=== PATIENT | male | born 1940 | race Caucasian/White ===

== ENCOUNTER 2017-03-19 19:31 | Emergency (ER) | payer MEDICARE ==
--- NOTE | 2017-03-19 20:07 | ED ---
Fall HPI - General Chief Complaint: Fall Stated Complaint: Fall,head injury Time Seen by Provider: 03/19/17 19:51 Source: RN notes reviewed, old records reviewed - History of Present Illness Initial Comments: This is a pleasant 76-year-old male with chief complaint of falling while stepping out of the truck. Patient reports that when he fell he landed on his right ribs. He states that he has pain whenever he moves. He states that he also has a laceration over left side of his head. He denies hitting his head but is unsure why he has a laceration. Denies any specific loss of consciousness. He is on Plavix. Patient denies any other extremity injuries or pain. He states that when he fell a back of toliet paper softened his fall. Patient denies any headache, neck pain, abdominal pain, chest pain or shortness of breath. Patient denies any extremity injuries, peripheral paresthesias. - Related Data Home Medications Medication Instructions Recorded Confirmed Aspirin EC [Ecotrin Low Dose] 81 mg PO DAILY 03/19/17 03/19/17 Atenolol [Tenormin] 50 mg PO BID 03/19/17 03/19/17 Atorvastatin [Lipitor] 20 mg PO DAILY 03/19/17 03/19/17 Atorvastatin [Lipitor] 40 mg PO DAILY 03/19/17 03/19/17 Clopidogrel [Plavix] 75 mg PO DAILY 03/19/17 03/19/17 Enalapril [Vasotec] 10 mg PO DAILY 03/19/17 03/19/17 Isosorbide Mononitrate ER [Imdur] 30 mg PO DAILY 03/19/17 03/19/17 Lisinopril [Zestril] 2.5 mg PO DAILY 03/19/17 03/19/17 Nitroglycerin Sl Tabs [Nitrostat] 0.4 mg SUBLINGUAL Q5M PRN 03/19/17 03/19/17 Ranolazine [Ranexa] 500 mg PO BID 03/19/17 03/19/17 glipiZIDE [Glucotrol] 5 mg PO DAILY 03/19/17 03/19/17 metFORMIN HCL 1,000 mg PO BID 03/19/17 03/19/17 Previous Rx's Medication Instructions Recorded Acetaminophen-Codeine 300-30mg 1 tab PO Q6H PRN #12 tablet 03/19/17 [Tylenol #3] Allergies Allergy/AdvReac Type Severity Reaction Status Date / Time iodine Allergy Rash/Hives Verified 03/19/17 20:08 naproxen [From Aleve] Allergy Rash/Hives Verified 03/19/17 20:08 Penicillins Allergy Rash/Hives Verified 03/19/17 20:08 Review of Systems ROS Statement: Those systems with pertinent positive or pertinent negative responses have been documented in the HPI. ROS Other: All systems not noted in ROS Statement are negative. General Exam - General Exam Comments Initial Comments: Pleasant 76 chilled male. No distress. General appearance: alert, in no apparent distress Head exam: Present: normocephalic, normal inspection. Absent: atraumatic (She has a2 cm laceration over the left latter-day) Eye exam: Present: normal appearance, PERRL, EOMI. Absent: scleral icterus, conjunctival injection, periorbital swelling ENT exam: Present: normal exam, normal oropharynx, mucous membranes moist Neck exam: Present: normal inspection. Absent: tenderness, meningismus, lymphadenopathy Respiratory exam: Present: normal lung sounds bilaterally, other (tenderness over right lower ribs with palpation). Absent: respiratory distress, wheezes, rales, rhonchi, stridor Cardiovascular Exam: Present: regular rate, normal rhythm, normal heart sounds. Absent: systolic murmur, diastolic murmur, rubs, gallop, clicks GI/Abdominal exam: Present: soft, normal bowel sounds. Absent: distended, tenderness, guarding, rebound, rigid Extremities exam: Present: normal inspection, full ROM, normal capillary refill. Absent: tenderness, pedal edema, joint swelling, calf tenderness Back exam: Present: normal inspection Neurological exam: Present: alert, oriented X3, CN II-XII intact Psychiatric exam: Present: normal affect, normal mood Skin exam: Present: warm, dry, intact, normal color. Absent: rash Course Vital Signs 03/19/17 20:07 Temperature 97.1 F L Pulse Rate 63 Respiratory 18 Rate Blood Pressure 162/70 O2 Sat by Pulse 97 Oximetry Procedures - Laceration Laceration #1 Indication: laceration Site: face Size (cm): 2 Description: linear Depth: simple, single layer Anesthetic Used: benzocaine 0.25% Anesthesia Technique: local infiltration Amount (mls): 3 Pre-repair: wound explored, irrigated extensively Type of Sutures: nylon Size of Sutures: 5-0, 6-0 Number of Sutures: 2 Technique: simple, interrupted Patient Tolerated Procedure: well, no complications Medical Decision Making - Medical Decision Making This is a pleasant 76-year-old male with chief complaint of a fall after stepping out of a truck. Patient reports that he missed her footing and landed on his right side. He does have a laceration over the left latter-day. Laceration was irrigated and closed with 2 sutures. Wound was well approximated. Patient complains of right lower rib pain. X-rays are obtained and show no definite fractures. He reports the pain is worse with position. Denies any shortness of breath or chest pain. Denies any abdominal pain. Patient has no tenderness over the abdomen. He is tender over the 10th and 11th ribs with deep palpation. Patient will be discharged at this time with head injury instructions as well as diagnosis of rib contusion. Discussed the importance of taking a deep breath to avoid pneumonia. Patient will be discharged with incentive spirometry. Also discussed the continue pain medication only as needed for severe pain. Patient advised to follow up with primary care provider within the next 2-3 days. Patient understands treatment plan will comply. Return parameters were discussed. - Radiology Data Radiology results: report reviewed CT brain and patient bones are negative for any acute abdomen. Right rib x-ray shows no evidence of acute displaced ribs. Chest x-ray is normal. Disposition Clinical Impression: Contusion of rib on right side, Facial laceration, Head injury Disposition: HOME SELF-CARE Condition: Good Instructions: Fall Prevention for Older Adults (ED) Additional Instructions: Please return to the emergency room in 7 days to have sutures removed. Please leave wound covered for the first 24-48 hours and then leave open to air after that time. Please use clean soap and water to clean the suture area to prevent scabbing over the top of your sutures. Please watch for any signs of infection which may include but not limited to increased pain, swelling, redness, fever or chills. Please return to the emergency room if any signs of infection do occur. Please return to the emergency room for any other concerns or complications. Patient needs to follow-up with primary care provider within the next 2 or 3 days. Patient is to be monitored at all times for the next 24- 48 hours and return to emergency Department if once if there is any altered mental status changes. Return to the emergency department if any alarming signs or symptoms occur. Patient follow-up with ENT specialist due to right ear hearing problem. She also thinks to take 10 deep breaths an hour for the next few days to ensure no developing pneumonias. Prescriptions: Acetaminophen-Codeine 300-30mg [Tylenol #3] 1 tab PO Q6H PRN #12 tablet PRN Reason: Pain Referrals: Sherri Porras MD [Primary Care Provider] - 1-2 days Bob Hernández DO [Doctor of Osteopathic Medicine] - 1-2 days Time of Disposition: 21:09
[2017-03-19 20:14] VITALS: RESP 18
--- NOTE | 2017-03-19 20:33 | CT ---
EXAMINATION TYPE: CT facial bones wo con DATE OF EXAM: 03/19/2017 8:22 PM COMPARISON: NONE HISTORY: Fall injury today. Laceration to lateral side of left oribt. CT DLP: [address] of the facial bones was performed in the axial and coronal planes. Bone and soft tissu e window settings are submitted. Left periorbital soft tissue edema. I do not see evidence for displaced facial bone fracture or depressed facial bone fracture. The globes are intact. Paranasal sinuses are well-aerated. IMPRESSION: 1. No evidence for depressed or displaced facial bone fracture.
--- NOTE | 2017-03-19 20:34 | XR ---
EXAMINATION TYPE: XR ribs RT w pa chest xray DATE OF EXAM: 03/19/2017 8:23 PM COMPARISON: NONE HISTORY: Pain TECHNIQUE: Single view of the chest 4 views of the ribs are submitted. FINDINGS: Scattered senescent parenchymal changes are seen. No Evidence for pneumothorax. No evidenc e for focal contusion. Mediastinal structures are midline. Evaluation of the ribs fails to demonstr ate evidence for displaced rib fracture or secondary sign of rib fracture. IMPRESSION: 1. Chronic changes of the lungs. 2. No displaced right-sided rib fracture.
--- NOTE | 2017-03-19 21:21 | CT ---
EXAMINATION TYPE: CT brain wo con DATE OF EXAM: 03/19/2017 8:22 PM COMPARISON: 11/04/2013 HISTORY: Fall injury today. Laceration to lateral side of left oribt. CT DLP: [address] of the brain was performed. The ventricles, basal cisterns and sulci overlying the cerebral convexities demonstrate mild enlargem ent. There is no evidence for intracranial hemorrhage or sulcal effacement. There is decreased attenuation about the periventricular white matter and deep white matter of both c erebral hemispheres, compatible with chronic small vessel ischemia. Differential diagnosis does inclu de demyelination. No mass effects are seen.No midline shift. Osseous calvarium is intact. Small left frontal scalp hematoma. If symptoms persist consider MRI. IMPRESSION: 1. Age related atrophic and chronic small vessel ischemic change without acute intracranial process s een at this time.
[2017-03-19 22:12] VITALS: BP 145/69; PULSE 89; TEMP 98
== END 2017-03-19 22:11 | disposition home or self-care (01) ==
LOC: EC 19:31
DX: S01.81XA Laceration without foreign body of other part of head, initial encounter (principal); S20.211A Contusion of right front wall of thorax, initial encounter; I25.2 Old myocardial infarction; Z79.02 Long term (current) use of antithrombotics/antiplatelets; Z79.82 Long term (current) use of aspirin; Z79.84 Long term (current) use of oral hypoglycemic drugs; Z79.899 Other long term (current) drug therapy; Z88.0 Allergy status to penicillin; Z88.6 Allergy status to analgesic agent; Z91.09 Other allergy status, other than to drugs and biological substances; W01.0XXA Fall on same level from slipping, tripping and stumbling without subsequent striking against object, initial encounter; Y93.89 Activity, other specified
CPT/HCPCS: 12011; 70450; 70486; 99284

== ENCOUNTER 2018-12-31 09:43 | Emergency (ER) | payer MEDICARE ==
[2018-12-31 09:48] VITALS: TEMP 97.6
--- NOTE | 2018-12-31 10:12 | ED ---
General Adult HPI - General Chief complaint: Abdominal Pain Stated complaint: rt sided groin pain Time Seen by Provider: 12/31/18 09:54 Source: patient, RN notes reviewed Mode of arrival: ambulatory Limitations: no limitations - History of Present Illness Initial comments: 78-year-old male presents to the emergency department for a chief complaint of upper left abdominal pain times 12 hours. Patient states this started last night. He states it was radiating into the left lower abdomen. Patient is unable to describe the nature of the pain but does state he thought it was gas pain at first. He last had a normal bowel movement yesterday. He denies melena or hematochezia. He denies hematemesis. Patient denies any chest pain or shortness of breath. Patient does state he has a history of a hiatal hernia , denies any abdominal surgeries. Patient admits to nausea but denies vomiting. Patient has no other complaints at this time including shortness of breath, chest pain, vomiting, headache, or visual changes. Pain is left sided despite triage note. - Related Data Home Medications Medication Instructions Recorded Confirmed Aspirin EC [Ecotrin Low Dose] 81 mg PO DAILY 03/19/17 12/31/18 Atorvastatin [Lipitor] 20 mg PO HS 03/19/17 12/31/18 Atorvastatin [Lipitor] 40 mg PO HS 03/19/17 12/31/18 Clopidogrel [Plavix] 75 mg PO DAILY 03/19/17 12/31/18 Nitroglycerin Sl Tabs [Nitrostat] 0.4 mg SUBLINGUAL Q5M PRN 03/19/17 12/31/18 Ranolazine [Ranexa] 500 mg PO BID 03/19/17 12/31/18 metFORMIN HCL 1,000 mg PO BID 03/19/17 12/31/18 [place] 100 mg PO TID 12/31/18 12/31/18 Atenolol 25 mg PO BID 12/31/18 12/31/18 Isosorbide Mononitrate ER [Imdur] 60 mg PO BID 12/31/18 12/31/18 Meclizine [Antivert] 25 mg PO BID 12/31/18 12/31/18 sitaGLIPtin [Januvia] 100 mg PO DAILY 12/31/18 12/31/18 Previous Rx's Medication Instructions Recorded HYDROcodone/APAP 5-325MG [[place] 1 tab PO Q6HR PRN #12 tab 12/31/18 5-325] Ondansetron [Zofran ODT] 4 mg PO Q8HR PRN #15 tab 12/31/18 Tamsulosin [Flomax] 0.4 mg PO DAILY #10 cap 12/31/18 Allergies Allergy/AdvReac Type Severity Reaction Status Date / Time iodine Allergy Rash/Hives Verified 12/31/18 10:08 naproxen [From Aleve] Allergy Rash/Hives Verified 12/31/18 10:08 Penicillins Allergy Rash/Hives Verified 12/31/18 10:08 Review of Systems ROS Statement: Those systems with pertinent positive or pertinent negative responses have been documented in the HPI. ROS Other: All systems not noted in ROS Statement are negative. Past Medical History Past Medical History: Atrial Fibrillation, CVA/TIA, Myocardial Infarction (DC) History of Any Multi-Drug Resistant Organisms: None Reported Past Surgical History: Heart Catheterization With Stent Additional Past Surgical History / Comment(s): carpal tunnel surgery Past Psychological History: No Psychological Hx Reported Smoking Status: Never smoker Past Alcohol Use History: None Reported Past Drug Use History: None Reported General Exam Limitations: no limitations General appearance: alert, in no apparent distress Head exam: Present: atraumatic, normocephalic, normal inspection Eye exam: Present: normal appearance, PERRL, EOMI. Absent: scleral icterus, conjunctival injection, periorbital swelling ENT exam: Present: normal exam, mucous membranes moist Neck exam: Present: normal inspection, full ROM. Absent: tenderness, meningismus, lymphadenopathy Respiratory exam: Present: normal lung sounds bilaterally. Absent: respiratory distress, wheezes, rales, rhonchi, stridor Cardiovascular Exam: Present: regular rate, normal rhythm, normal heart sounds. Absent: systolic murmur, diastolic murmur, rubs, gallop, clicks GI/Abdominal exam: Present: soft, tenderness (Tenderness with guarding noted in the left upper quadrant as well as minimal tenderness in the left lower quadrant. No tenderness in the right side of the abdomen.), normal bowel sounds. Absent: distended, guarding, rebound, rigid Neurological exam: Present: alert, oriented X3, CN II-XII intact Psychiatric exam: Present: normal affect, normal mood Course Vital Signs 0212/31/18 12/31/18 09:45 10:15 11:30 Temperature 97.6 F Pulse Rate 89 93 90 Respiratory 20 16 19 Rate Blood Pressure 171/75 169/87 179/95 O2 Sat by Pulse 98 98 98 Oximetry 12/31/18 12/31/18 12:04 13:54 Temperature Pulse Rate 93 89 Respiratory 16 16 Rate Blood Pressure 188/94 175/95 O2 Sat by Pulse 98 98 Oximetry Medical Decision Making - Medical Decision Making 78-year-old male presents for left abdominal pain. Patient does have a 5 mm stone in the left ureter with obstruction likely causing patient's pain. Discussed other resolve such as cholelithiasis and prominence of pancreatic duct for which patient will follow up with primary care at his appointment on Thursday for. CMP does show potassium of 5.5, patient does appear dehydrated with a BUN of 31, given fluids. Magnesium 1.5 which was her placed with a gram of magnesium. EKG does not show any evidence of hyperkalemia. At this time discussed following up for repeat lab work as well as the CAT scan results. Patient will follow up with urology. Medications given however discussed increased risk of falls with [place]. - Lab Data Result diagrams: 12/31/18 10:00 12/31/18 10:00 Lab Results 12/31/18 12/31/18 12/31/18 Range/Units 10:00 10:00 10:00 WBC 9.2 (3.8-10.6) k/uL RBC 4.51 (4.30-5.90) m/uL Hgb 13.9 (13.0-17.5) gm/dL Hct 39.1 (39.0-53.0) % MCV 86.7 (80.0-100.0) fL MCH 30.7 (25.0-35.0) pg MCHC 35.5 (31.0-37.0) g/dL RDW 15.5 (11.5-15.5) % Plt Count 138 L (150-450) k/uL Neutrophils % 86 % Lymphocytes % 6 % Monocytes % 7 % Eosinophils % 0 % Basophils % 0 % Neutrophils # 7.8 H (1.3-7.7) k/uL Lymphocytes # 0.6 L (1.0-4.8) k/uL Monocytes # 0.6 (0-1.0) k/uL Eosinophils # 0.0 (0-0.7) k/uL Basophils # 0.0 (0-0.2) k/uL Sodium 138 (137-145) mmol/L Potassium 5.5 H (3.5-5.1) mmol/L Chloride 101 (98-107) mmol/L Carbon Dioxide 26 (22-30) mmol/L Anion Gap 11 mmol/L BUN 31 H (9-20) mg/dL Creatinine 1.15 (0.66-1.25) mg/dL Est GFR (CKD-EPI)AfAm 71 (>60 ml/min/1.73 sqM) Est GFR (CKD-EPI)NonAf 61 (>60 ml/min/1.73 sqM) Glucose 249 H (74-99) mg/dL POC Glucose (mg/dL) (75-99) mg/dL POC Glu Road Grader ID Calcium 9.5 (8.4-10.2) mg/dL Magnesium 1.5 L (1.6-2.3) mg/dL Total Bilirubin 0.7 (0.2-1.3) mg/dL AST 22 (17-59) U/L ALT 39 (21-72) U/L Alkaline Phosphatase 69 (38-126) U/L Total Protein 6.9 (6.3-8.2) g/dL Albumin 4.0 (3.5-5.0) g/dL Amylase 127 H (30-110) U/L Lipase 281 (23-300) U/L Urine Color Urine Appearance (Clear) Urine pH (5.0-8.0) Ur Specific Boomer (1.001-1.035) Urine Protein (Negative) Urine Glucose (UA) (Negative) Urine Ketones (Negative) Urine Blood (Negative) Urine Nitrite (Negative) Urine Bilirubin (Negative) Urine Urobilinogen (<2.0) mg/dL Ur Leukocyte Esterase (Negative) Urine RBC (0-5) /hpf Urine WBC (0-5) /hpf 12/31/18 12/31/18 Range/Units 11:39 12:01 WBC (3.8-10.6) k/uL RBC (4.30-5.90) m/uL Hgb (13.0-17.5) gm/dL Hct (39.0-53.0) % MCV (80.0-100.0) fL MCH (25.0-35.0) pg MCHC (31.0-37.0) g/dL RDW (11.5-15.5) % Plt Count (150-450) k/uL Neutrophils % % Lymphocytes % % Monocytes % % Eosinophils % % Basophils % % Neutrophils # (1.3-7.7) k/uL Lymphocytes # (1.0-4.8) k/uL Monocytes # (0-1.0) k/uL Eosinophils # (0-0.7) k/uL Basophils # (0-0.2) k/uL Sodium (137-145) mmol/L Potassium (3.5-5.1) mmol/L Chloride (98-107) mmol/L Carbon Dioxide (22-30) mmol/L Anion Gap mmol/L BUN (9-20) mg/dL Creatinine (0.66-1.25) mg/dL Est GFR (CKD-EPI)AfAm (>60 ml/min/1.73 sqM) Est GFR (CKD-EPI)NonAf (>60 ml/min/1.73 sqM) Glucose (74-99) mg/dL POC Glucose (mg/dL) 229 H (75-99) mg/dL POC Glu Road Grader ID [place] Calcium (8.4-10.2) mg/dL Magnesium (1.6-2.3) mg/dL Total Bilirubin (0.2-1.3) mg/dL AST (17-59) U/L ALT (21-72) U/L Alkaline Phosphatase (38-126) U/L Total Protein (6.3-8.2) g/dL Albumin (3.5-5.0) g/dL Amylase (30-110) U/L Lipase (23-300) U/L Urine Color Yellow Urine Appearance Clear (Clear) Urine pH 7.5 (5.0-8.0) Ur Specific [place]omer 1.022 (1.001-1.035) Urine Protein Negative (Negative) Urine Glucose (UA) 3+ H (Negative) Urine Ketones Trace H (Negative) Urine Blood Small H (Negative) Urine Nitrite Negative (Negative) Urine Bilirubin Negative (Negative) Urine Urobilinogen <2.0 (<2.0) mg/dL Ur Leukocyte Esterase Negative (Negative) Urine RBC 15 H (0-5) /hpf Urine WBC 1 (0-5) /hpf Disposition Clinical Impression: Kidney stone on left side, Hyperkalemia, Hypomagnesemia Disposition: HOME SELF-CARE Condition: Good Instructions (If sedation given, give patient instructions): Kidney Stones (ED) Additional Instructions: Please take medications as directed. Please follow-up with urology in 1-2 days. Follow-up with your primary care physician at your appointment to discuss CT results and repeat lab work for hyperkalemia and hypomagnesemia.. Return to the emergency department if you have any worsening symptoms. Prescriptions: HYDROcodone/APAP 5-325MG [[place] 5-325] 1 tab PO Q6HR PRN #12 tab PRN Reason: Pain Ondansetron [Zofran ODT] 4 mg PO Q8HR PRN #15 tab PRN Reason: Nausea Tamsulosin [Flomax] 0.4 mg PO DAILY #10 cap Is patient prescribed a controlled substance at d/c from ED?: No Referrals: Sherri Porras MD [Primary Care Provider] - 1-2 days Hakan Quezada MD [STAFF PHYSICIAN] - 1-2 days Time of Disposition: 13:34
[2018-12-31] MEDS ORDERED: ONDANSETRON 4 MG/2 ML VIAL IVP STA (10:22)
[2018-12-31] MEDS ORDERED: SODIUM CHLORIDE 0.9% 500 ML 500 ML IV STA ×2 (10:22→13:17)
[2018-12-31] MEDS ORDERED: FAMOTIDINE 20 MG/2 ML VIAL IV STA (10:45)
[2018-12-31] MEDS ORDERED: methylPREDNISolone SOD SUCCI 125 MG/2 ML VIAL IV STA (10:46)
[2018-12-31] MEDS ORDERED: diphenhydrAMINE 50 MG/ML 1 ML VIAL IVP STA (10:46)
[2018-12-31 10:51] LABS: Basophils % (A) 0 %; Eosinophils % (A) 0 %; HCT 39.1 % (39.0-53.0); HGB 13.9 gm/dL (13.0-17.5); Lymphocytes # (A) 0.6 k/uL (1.0-4.8); Lymphocytes % (A) 6 %; MCH 30.7 pg (25.0-35.0); MCHC 35.5 g/dL (31.0-37.0); MCV 86.7 fL (80.0-100.0); Mean Platelet Volume 7.7; Monocytes # (A) 0.6 k/uL (0-1.0); Monocytes % (A) 7 %; Neutrophils # (A) 7.8 k/uL (1.3-7.7); Neutrophils % (A) 86 %; Platelet Count 138 k/uL (150-450); RBC 4.51 m/uL (4.30-5.90); RDW 15.5 % (11.5-15.5); WBC 9.2 k/uL (3.8-10.6)
[2018-12-31 11:05] LABS: Calcium 9.5 mg/dL (8.4-10.2); Potassium 5.5 mmol/L (3.5-5.1); Total Bilirubin 0.7 mg/dL (0.2-1.3); Total Protein 6.9 g/dL (6.3-8.2)
[2018-12-31 11:59] LABS: Glucose,Whole Blood 229 mg/dL (75-99)
[2018-12-31 12:06] VITALS: RESP 16
[2018-12-31] MEDS ORDERED: MORPHINE SULFATE 4 MG/ML SYRINGE IVP STA (12:13)
--- NOTE | 2018-12-31 12:16 | CT ---
EXAMINATION TYPE: CT abdomen pelvis w con DATE OF EXAM: 12/31/2018 COMPARISON: None INDICATION: Right sided groin pain DLP: 871.1 mGycm, Automated exposure control for dose reduction was used. CONTRAST: 100 ml mL of Isovue 300. Study performed with Oral Contrast TECHNIQUE: Axial images were obtained from above the diaphragm to the pubic rami in the axial plane a t 5 mm thick sections. Reconstructed images are reviewed on the computer in the coronal plane. FINDINGS: Limited CT sections are obtained the lung bases. Some minimal compressive atelectasis within the dep endent portion of the lung bases. Coronary artery calcification is present.. CT ABDOMEN: Liver: Normal Spleen: Normal Pancreas: There is slight prominence of the pancreatic duct at the head of the pancreas. The body and tail pancreatic duct is visualized appears within normal limits. Consider ERCP for additional evalua tion. Adrenal glands: The adrenal glands are normal. Gallbladder: Gallstones are present. Kidneys: No masses are evident. Mild left hydronephrosis is present. There is mild left hydroureter. This extends to a 0.5 cm calcification within the proximal left ureter. There is a 2.2 cm cyst measur ing 4 Hounsfield units in the posterior left mid kidney. On delayed images there is no significant e xcretion into the renal collecting system on the left compared to the right. Initial arterial phase c ontrast left renal cortical enhancement is minimally and slightly diminished in relation to the right kidney. Some inflammatory changes adjacent to the left kidney. Aorta: Vascular calcification is within the aorta. Inferior vena cava: Normal. CT PELVIS: Loops of bowel within the abdomen and pelvis are normal. There are loops of bowel which are incom pletely distended or lack oral contrast limiting their evaluation. Appendix: Normal as visualized. Urinary bladder: Normal. No urinary bladder stones are evident. Genitourinary structures: Prostate is prominent. Osseous structures: No suspicious lytic or sclerotic lesions. Facet degenerative changes are within t he lower lumbar spine. IMPRESSIONS: 1. Cholelithiasis. 2. Mild prominence of the pancreatic duct. Consider ERCP for additional evaluation. 3. Obstructing 0.5 cm left proximal ureteral stone with mild left hydronephrosis and perinephric stra nding. There is some slight delay of excretion left kidney compared to right. 4. Simple appearing left renal cyst.
[2018-12-31 12:35] LABS: Appearance,Urine Clear (Clear); Bilirubin,Urine Negative (Negative); Blood,Urine Small (Negative); Color,Urine Yellow; Glucose,Urine (UA) 3+ (Negative); Ketones,Urine Trace (Negative); Leukocyte Esterase,Urine Negative (Negative); Nitrite,Urine Negative (Negative); PH, Urine 7.5 (5.0-8.0); Protein,Urine Negative (Negative); RBC,Urine 15 /hpf (0-5); Specific Gravity,Urine 1.022 (1.001-1.035); Urobilinogen,Urine <2.0 mg/dL (<2.0); WBC,Urine 1 /hpf (0-5)
[2018-12-31] MEDS ORDERED: MAGNESIUM SULFATE-D5W PMX 1 GM in DEXTROSE/WATER 1 100ML.BAG IVPB ONE (13:16)
[2018-12-31 13:56] VITALS: BP 175/95; PULSE 89
--- NOTE | 2018-12-31 14:23 | XR ---
EXAMINATION TYPE: XR KUB DATE OF EXAM: 12/31/2018 2:14 PM CLINICAL HISTORY: Right-sided abdominal pain and nausea TECHNIQUE: Single upright image of the abdomen is obtained. COMPARISON: 12/31/2018 CT FINDINGS: There is severe right hemicolonic stool burden present. Intravenous contrast is seen within the left collecting system and urinary bladder. There is a delayed nephrogram on the left in compari son to the already excreted right collecting system secondary to the known left obstructive uropathy. Gaseous distention of the colon without gross dilation is noted. No pneumoperitoneum. Osseous struct ures are grossly intact. IMPRESSION: 1. Delayed nephrogram the left kidney secondary to the known left mid ureteral obstruction with cough at the obstruction. 2. Severe right hemicolonic stool burden and gaseous distention of the colon without dilation.
== END 2018-12-31 14:55 | disposition home or self-care (01) ==
LOC: EC 09:43
DX: N13.2 Hydronephrosis with renal and ureteral calculous obstruction (principal); E87.5 Hyperkalemia; E83.42 Hypomagnesemia; K80.20 Calculus of gallbladder without cholecystitis without obstruction; I48.91 Unspecified atrial fibrillation; I25.2 Old myocardial infarction; Z79.84 Long term (current) use of oral hypoglycemic drugs; Z79.899 Other long term (current) drug therapy; Z88.0 Allergy status to penicillin; Z91.048 Other nonmedicinal substance allergy status; Z88.6 Allergy status to analgesic agent
CPT/HCPCS: 36415; 93005; 80053; 82150; 83690; 83735; 85025; 81001; 74018; 74177; 99284; 96365; 96375 ×5; 96361; J2270; J1200; J2930; J2405; J3475; Q9967

== ENCOUNTER 2019-01-29 16:27 | Emergency (ER) | payer MEDICARE ==
[2019-01-29 16:36] VITALS: RESP 16; TEMP 98
--- NOTE | 2019-01-29 16:54 | ED ---
Syncope HPI - General Chief Complaint: Dizziness Stated Complaint: Syncope,fall Time Seen by Provider: 01/29/19 16:39 Source: patient, RN notes reviewed, old records reviewed Mode of arrival: ambulatory Limitations: no limitations - History of Present Illness Initial Comments: This is a 70-year-old male to the ER for evaluation. Presents today for eval uation regarding syncopal event. Patient states he was walking into his kitchen felt lightheaded and dizzy standing next to his car that he was feeling better and then passed out to the ground. Patient denies any pain fall. No headache chest pain shortness or abdominal pain currently. Patient has had about 5 syncopal events over the past year and a half. No cause found. 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 No recent change in medications. Patient denies any other complaints. Fever no cough or shortness of breath. No nausea vomiting diarrhea MD Complaint: loss of consciousness, felt faint -: minutes(s) Prodromal Symptoms: lightheaded Witnessed: no Injuries Sustained Associated with Event: None Current Symptoms: back to baseline History: previous syncopal episode Context: during exertion Treatments Prior to Arrival: none - Related Data Home Medications Medication Instructions Recorded Confirmed Aspirin EC [Ecotrin Low Dose] 81 mg PO DAILY 03/19/17 01/29/19 Atorvastatin [Lipitor] 40 mg PO HS 03/19/17 01/29/19 Clopidogrel [Plavix] 75 mg PO DAILY 03/19/17 01/29/19 Nitroglycerin Sl Tabs [Nitrostat] 0.4 mg SUBLINGUAL Q5M PRN 03/19/17 01/29/19 Acarbose 100 mg PO QAM 12/31/18 01/29/19 Isosorbide Mononitrate ER [Imdur] 60 mg PO BID 12/31/18 01/29/19 Acarbose [Precose] 50 mg PO HS 01/29/19 01/29/19 Cholecalciferol [Vitamin D3] 1,000 unit PO DAILY 01/29/19 01/29/19 Cilostazol [Pletal] 100 mg PO BID 01/29/19 01/29/19 metFORMIN HCL [Glucophage] 500 mg PO BID 01/29/19 01/29/19 Allergies Allergy/AdvReac Type Severity Reaction Status Date / Time iodine Allergy Rash/Hives Verified 01/29/19 17:45 naproxen [From Aleve] Allergy Rash/Hives Verified 01/29/19 17:45 Penicillins Allergy Rash/Hives Verified 01/29/19 17:45 Review of Systems ROS Statement: Those systems with pertinent positive or pertinent negative responses have been documented in the HPI. ROS Other: All systems not noted in ROS Statement are negative. Past Medical History Past Medical History: Atrial Fibrillation, CVA/TIA, Myocardial Infarction (DC) History of Any Multi-Drug Resistant Organisms: None Reported Past Surgical History: Heart Catheterization With Stent Additional Past Surgical History / Comment(s): carpal tunnel surgery Past Psychological History: No Psychological Hx Reported Smoking Status: Never smoker Past Alcohol Use History: None Reported Past Drug Use History: None Reported General Exam Limitations: no limitations General appearance: alert, in no apparent distress Head exam: Present: atraumatic, normocephalic, normal inspection Eye exam: Present: normal appearance, PERRL, EOMI. Absent: scleral icterus, conjunctival injection, periorbital swelling ENT exam: Present: normal exam, mucous membranes moist Neck exam: Present: normal inspection. Absent: tenderness, meningismus, lymphadenopathy Respiratory exam: Present: normal lung sounds bilaterally. Absent: respiratory distress, wheezes, rales, rhonchi, stridor Cardiovascular Exam: Present: regular rate, normal rhythm, normal heart sounds. Absent: systolic murmur, diastolic murmur, rubs, gallop, clicks GI/Abdominal exam: Present: soft, normal bowel sounds. Absent: distended, tenderness, guarding, rebound, rigid Extremities exam: Present: normal inspection, full ROM, normal capillary refill. Absent: tenderness, pedal edema, joint swelling, calf tenderness Back exam: Present: normal inspection Neurological exam: Present: alert, oriented X3, CN II-XII intact Psychiatric exam: Present: normal affect, normal mood Skin exam: Present: warm, dry, intact, normal color. Absent: rash Course Vital Signs 01/29/19 01/29/19 16:30 18:09 Temperature 98.0 F Pulse Rate 100 88 Respiratory 16 16 Rate Blood Pressure 142/74 120/58 O2 Sat by Pulse 98 99 Oximetry - Reevaluation(s) Reevaluation #1: 01/29/19 17:08 Medical record is reviewed Reevaluation #2: 01/29/19 17:08 Patient is continued do not complete complaint, no syncopal event here in the ER EKG Findings - EKG Comments: EKG Findings:: EKG shows sinus rhythm rate of 94, [place] 166, QRS 90, QTc 445 Medical Decision Making - Medical Decision Making Female the ER with syncopal versus near syncopal event, patient has significant heart history. There is patient's syncope likely related to arrhythmia. Patient is no syncope here in the ER. Symptoms going on and off for about a year and a half. He is reviewed physician change in with activity. Patient denying any complaints here in the ER will be discharged home - Lab Data Result diagrams: 01/29/19 16:51 01/29/19 16:51 Lab Results 01/29/19 01/29/19 01/29/19 Range/Units 16:51 16:51 16:51 WBC 3.5 L (3.8-10.6) k/uL RBC 4.13 L (4.30-5.90) m/uL Hgb 11.9 L (13.0-17.5) gm/dL Hct 36.3 L (39.0-53.0) % MCV 87.8 (80.0-100.0) fL MCH 28.8 (25.0-35.0) pg MCHC 32.9 (31.0-37.0) g/dL RDW 16.9 H (11.5-15.5) % Plt Count 137 L (150-450) k/uL Neutrophils % 64 % Lymphocytes % 19 % Monocytes % 11 % Eosinophils % 2 % Basophils % 1 % Neutrophils # 2.2 (1.3-7.7) k/uL Lymphocytes # 0.7 L (1.0-4.8) k/uL Monocytes # 0.4 (0-1.0) k/uL Eosinophils # 0.1 (0-0.7) k/uL Basophils # 0.0 (0-0.2) k/uL Anisocytosis Slight PT 10.6 (9.0-12.0) sec INR 1.0 (<1.2) APTT 22.9 (22.0-30.0) sec D-Dimer 0.55 (<0.60) mg/L FEU Sodium 139 (137-145) mmol/L Potassium 4.6 (3.5-5.1) mmol/L Chloride 102 (98-107) mmol/L Carbon Dioxide 26 (22-30) mmol/L Anion Gap 11 mmol/L BUN 21 H (9-20) mg/dL Creatinine 0.98 (0.66-1.25) mg/dL Est GFR (CKD-EPI)AfAm 86 (>60 ml/min/1.73 sqM) Est GFR (CKD-EPI)NonAf 74 (>60 ml/min/1.73 sqM) Glucose 200 H (74-99) mg/dL Calcium 9.7 (8.4-10.2) mg/dL Phosphorus 3.9 (2.5-4.5) mg/dL Magnesium 1.4 L (1.6-2.3) mg/dL Total Bilirubin 0.6 (0.2-1.3) mg/dL AST 18 (17-59) U/L ALT 34 (21-72) U/L Alkaline Phosphatase 58 (38-126) U/L Troponin I (0.000-0.034) ng/mL NT-Pro-B Natriuret Pep pg/mL Total Protein 6.6 (6.3-8.2) g/dL Albumin 3.8 (3.5-5.0) g/dL 01/29/19 01/29/19 Range/Units 16:51 16:51 WBC (3.8-10.6) k/uL RBC (4.30-5.90) m/uL Hgb (13.0-17.5) gm/dL Hct (39.0-53.0) % MCV (80.0-100.0) fL MCH (25.0-35.0) pg MCHC (31.0-37.0) g/dL RDW (11.5-15.5) % Plt Count (150-450) k/uL Neutrophils % % Lymphocytes % % Monocytes % % Eosinophils % % Basophils % % Neutrophils # (1.3-7.7) k/uL Lymphocytes # (1.0-4.8) k/uL Monocytes # (0-1.0) k/uL Eosinophils # (0-0.7) k/uL Basophils # (0-0.2) k/uL Anisocytosis PT (9.0-12.0) sec INR (<1.2) APTT (22.0-30.0) sec D-Dimer (<0.60) mg/L FEU Sodium (137-145) mmol/L Potassium (3.5-5.1) mmol/L Chloride (98-107) mmol/L Carbon Dioxide (22-30) mmol/L Anion Gap mmol/L BUN (9-20) mg/dL Creatinine (0.66-1.25) mg/dL Est GFR (CKD-EPI)AfAm (>60 ml/min/1.73 sqM) Est GFR (CKD-EPI)NonAf (>60 ml/min/1.73 sqM) Glucose (74-99) mg/dL Calcium (8.4-10.2) mg/dL Phosphorus (2.5-4.5) mg/dL Magnesium (1.6-2.3) mg/dL Total Bilirubin (0.2-1.3) mg/dL AST (17-59) U/L ALT (21-72) U/L Alkaline Phosphatase (38-126) U/L Troponin I <0.012 (0.000-0.034) ng/mL NT-Pro-B Natriuret Pep 301 pg/mL Total Protein (6.3-8.2) g/dL Albumin (3.5-5.0) g/dL Disposition Clinical Impression: Near syncope, Dehydration Narrative: Arrhythmia? Disposition: HOME SELF-CARE Condition: Good Instructions (If sedation given, give patient instructions): Syncope (ED) Is patient prescribed a controlled substance at d/c from ED?: No Referrals: Derek Downey MD [STAFF PHYSICIAN] - 1-2 days
[2019-01-29] MEDS ORDERED: SODIUM CHLORIDE 0.9% 1,000 ML IV STA (17:01)
[2019-01-29 17:22] LABS: Anisocytosis Slight; Basophils % (A) 1 %; Eosinophils # (A) 0.1 k/uL (0-0.7); Eosinophils % (A) 2 %; HCT 36.3 % (39.0-53.0); HGB 11.9 gm/dL (13.0-17.5); Lymphocytes # (A) 0.7 k/uL (1.0-4.8); Lymphocytes % (A) 19 %; MCH 28.8 pg (25.0-35.0); MCHC 32.9 g/dL (31.0-37.0); MCV 87.8 fL (80.0-100.0); Mean Platelet Volume 8.5; Monocytes # (A) 0.4 k/uL (0-1.0); Monocytes % (A) 11 %; Neutrophils # (A) 2.2 k/uL (1.3-7.7); Neutrophils % (A) 64 %; Platelet Count 137 k/uL (150-450); RBC 4.13 m/uL (4.30-5.90); RDW 16.9 % (11.5-15.5); WBC 3.5 k/uL (3.8-10.6)
[2019-01-29 17:33] LABS: Albumin 3.8 g/dL (3.5-5.0); Calcium 9.7 mg/dL (8.4-10.2); Magnesium 1.4 mg/dL (1.6-2.3); Phosphorus 3.9 mg/dL (2.5-4.5); Potassium 4.6 mmol/L (3.5-5.1); Total Bilirubin 0.6 mg/dL (0.2-1.3); Total Protein 6.6 g/dL (6.3-8.2)
[2019-01-29 17:38] LABS: D-Dimer 0.55 mg/L FEU (<0.60); Partial Thromboplastin Time 22.9 sec (22.0-30.0); Prothrombin Time 10.6 sec (9.0-12.0)
[2019-01-29] MEDS ORDERED: MAGNESIUM OXIDE 400 MG TAB PO STA (18:04)
[2019-01-29 18:10] VITALS: BP 120/58; PULSE 88
== END 2019-01-29 19:01 | disposition home or self-care (01) ==
LOC: EC 16:27
DX: E86.0 Dehydration (principal); R55 Syncope and collapse; I25.2 Old myocardial infarction; Z79.82 Long term (current) use of aspirin; Z79.02 Long term (current) use of antithrombotics/antiplatelets; Z79.84 Long term (current) use of oral hypoglycemic drugs; Z79.899 Other long term (current) drug therapy; Z88.0 Allergy status to penicillin; Z88.6 Allergy status to analgesic agent; Z91.048 Other nonmedicinal substance allergy status; Z95.5 Presence of coronary angioplasty implant and graft; Z86.73 Personal history of transient ischemic attack (TIA), and cerebral infarction without residual deficits
CPT/HCPCS: 36415; 80053; 83735; 83880; 84100; 84484; 85025; 85379; 85610; 85730; 93005; 96360; 99284

== ENCOUNTER → 2019-03-14 | Outpatient (CLI) | payer MEDICARE ==
--- NOTE | 2019-03-14 13:24 | MR ---
EXAMINATION TYPE: MR MRCP DATE OF EXAM: 03/14/2019 COMPARISON: CT abdomen and pelvis December 31, 2018 HISTORY: Abnormal weight loss Standard multiplanar, multisequence MRI departmental protocol Multiplanar, multisequence images of the abdomen focusing on pancreatic and biliary system are were a cquired. Thin and thick slice MRCP imaging is created on MRI scanner. FINDINGS: Liver/gallbladder/pancreas/biliary system: Liver is normal in size. No suspicious solid or cystic mas s is present. Gallbladder shows a few small dependent gallstones coronal image 23 for reference. No a bnormal gallbladder wall thickening or surrounding fluid is seen. Pancreas is normal in size. No susp icious solid or cystic masses are evident. Pancreatic duct becomes more prominent in the head near th e ampulla where it is mildly dilated at portions 5 to 6 mm near ampulla and in the head MRCP images 4 4 and 54 for reference. No obstructing mass or calculus is clearly seen. No suspicious beading noted. No significant extrahepatic and intrahepatic biliary dilatation. Other: Lung bases are clear. Spleen and both adrenal glands are normal in size. There is simple appea ring 3.2 cm thin-walled cyst posterior medially mid pole level left kidney axial image 13. No suspici ous bowel dilatation. No abdominal ascites. No suspicious abdominal adenopathy. Osseous structures ar e intact. IMPRESSION: Redemonstration of mild dilatation of the Main pancreatic duct in the head during vertical course and near ampulla without obstructing mass clearly seen. Consider imaging follow-up in 6-12 months time to reassess or direct visualization with ERCP.
== END | disposition home or self-care (01) ==
LOC: RADMRIMAIN 08:22
PROVIDERS: ATTEND Internal Medicine Gastroenterology
DX: K86.89 Other specified diseases of pancreas (principal); R63.4 Abnormal weight loss
CPT/HCPCS: 74181